=== PATIENT | male | born 1925 | race Caucasian/White ===

== ENCOUNTER 2016-11-23 07:41 | Outpatient (CLI) | payer MEDICARE ==
[2016-11-23 09:18] LABS: ALT (SGPT) 9 U/L (0-55); AST (SGOT) 17 U/L (5-34); Alkaline Phosphatase 101 U/L (40-150); Anion Gap 14 mmol/L (10-20); BUN (Urea Nitrogen) 14 mg/dL (8.4-25.7); Bilirubin, Total 0.8 mg/dL (0.2-1.2); Calc. Creatinine Clearance 0 mL/min (70-130); Calcium 8.3 mg/dL (7.8-10.44); Carbon Dioxide 22 mmol/L (23-31); Chloride 108 mmol/L (98-107); Estimated GFR-MDRD Greater than 90; Globulin 2.7 g/dL (2.4-3.5); Protein, Total 5.9 g/dL (5.8-8.1)
[2016-11-23 10:07] LABS: #Lymphocytes 1.3 thou/uL (1.20-3.40); #Monocytes 0.8 thou/uL (0.11-0.59); #Neutrophils 3.2 thou/uL (1.40-6.50); %Basophils 0.4 % (0.0-1.0); %Lymphocytes 24.7 % (21.0-51.0); %Monocytes 14.6 % (0.0-10.0); Hematocrit 42.2 % (42.0-52.0); Mean Platelet Volume 11.8 fL (7.4-10.4); Red Blood Cell (RBC) Count 4.26 mill/uL (4.70-6.10); White Blood Cell (WBC) Count 5.4 thou/uL (4.8-10.8)
== END 2016-11-23 07:42 | disposition home or self-care (01) ==
LOC: NAV LABSP 07:41
PROVIDERS: ATTEND Family Medicine
DX: F03.90 Unspecified dementia, unspecified severity, without behavioral disturbance, psychotic disturbance, mood disturbance, and anxiety (principal)
CPT/HCPCS: 36415; 80053; 85025

== ENCOUNTER 2016-11-29 09:02 | Emergency (ER) | payer MEDICARE ==
--- NOTE | 2016-11-29 09:43 | RAD ---
TWO VIEWS OF THE LEFT HIP 11/29/2016 FINDINGS: AP and frog-leg views of the left hip demonstrate no evidence of left hip fractures, subluxations, o r bony lesions. IMPRESSION: Normal two views left hip. POS: [facility]
--- NOTE | 2016-11-29 09:46 | RAD ---
SINGLE AP VIEW RIGHT HIP 11/29/2016 HISTORY: Right hip injury with pain. [facility] with continue d pain. FINDINGS: Single AP view right hip demonstrates a transverse moderately displaced fracture in the right femora l neck. There is some superior migration of the distal fracture fragment. IMPRESSION: Acute right femoral neck fracture. POS: [facility]
--- NOTE | 2016-11-29 10:00 | RAD ---
LEFT KNEE TWO VIEWS HISTORY: Injury, left knee pain. FINDINGS/IMPRESSION: There are severe degenerative changes. No acute fracture or dislocation is identified. POS: [facility]
--- NOTE | 2016-11-29 10:01 | RAD ---
RIGHT KNEE TWO VIEWS HISTORY: Injury, right knee pain. FINDINGS/IMPRESSION: Severe degenerative changes are present. No acute fracture or dislocation is seen. POS: [facility]
[2016-11-29 10:26] LABS: #Basophils 0.2 thou/uL (0.0-0.2); #Lymphocytes 0.8 thou/uL (1.20-3.40); #Monocytes 1.6 thou/uL (0.11-0.59); #Neutrophils 11.5 thou/uL (1.40-6.50); %Basophils 1.1 % (0.0-1.0); %Lymphocytes 5.7 % (21.0-51.0); %Monocytes 11.6 % (0.0-10.0); Hematocrit 44.5 % (42.0-52.0); Mean Platelet Volume 12.3 fL (7.4-10.4); Red Blood Cell (RBC) Count 4.55 mill/uL (4.70-6.10); White Blood Cell (WBC) Count 14.1 thou/uL (4.8-10.8)
[2016-11-29 10:32] LABS: Anion Gap 16 mmol/L (10-20); BUN (Urea Nitrogen) 22 mg/dL (8.4-25.7); Calc. Creatinine Clearance 0 mL/min (70-130); Carbon Dioxide 22 mmol/L (23-31); Chloride 107 mmol/L (98-107); Estimated GFR-MDRD Greater than 90
--- NOTE | 2016-11-30 07:50 | RAD ---
FRONTAL RADIOGRAPH CHEST 11/29/2016 COMPARISON: None. HISTORY: Trauma, pain. FINDINGS: Supine imaging is provided, limiting assessment for pneumothorax and pleural fluid. The cardiac apollo houette appears enlarged. There is a large hiatal hernia which appears to contain stomach and colon . No lobar consolidation or alveolar edema. A 6th, 7th, and 8th right-sided posterolateral rib fra ctures noted, likely subacute in nature as there appears to be a degree of healing. IMPRESSION: Supine imaging limits evaluation for pneumothorax and pleural fluid. No focal consolidation or alve olar edema. Incidental findings as above. POS: [facility]
== END 2016-11-29 11:15 | disposition short-term general hospital (02) ==
LOC: NAV ERS 09:02
DX: S72.001A Fracture of unspecified part of neck of right femur, initial encounter for closed fracture (principal); I48.91 Unspecified atrial fibrillation; M81.0 Age-related osteoporosis without current pathological fracture; F03.90 Unspecified dementia, unspecified severity, without behavioral disturbance, psychotic disturbance, mood disturbance, and anxiety; Z79.891 Long term (current) use of opiate analgesic; Z79.899 Other long term (current) drug therapy; W19.XXXA Unspecified fall, initial encounter
CPT/HCPCS: 71010; 80048; 85025